=== PATIENT | male | born 1960 | race American Indian/Alaskan Native ===

== ENCOUNTER 2016-07-02 00:05 | Emergency (ER) | payer MEDICARE ==
[2016-07-02 01:11] LABS: Basophils % (Auto) 1.4 % (0.0-1.8); Eosinophils % (Auto) 5.7 % (0.0-4.3); Hematocrit 43.1 % (35.5-45.6); Hemoglobin 14.3 gm/dl (11.8-15.2); Mean Corpuscular HGB Conc 33 % (32-34); Mean Corpuscular Hemoglobin 30 pg (28-32); Mean Corpuscular Volume 89 fl (84-94); Platelet Count 334 K/mm3 (140-440); Red Blood Count 4.84 M/mm3 (3.65-5.03); Red Cell Distribution Width 13.4 % (13.2-15.2); White Blood Count 8.9 K/mm3 (4.5-11.0)
[2016-07-02 01:24] LABS: Blood Urea Nitrogen 8 mg/dL (9-20); Calcium 9.1 mg/dL (8.4-10.2); Carbon Dioxide 25 mmol/L (22-30); Chloride 98.2 mmol/L (98-107); Glucose 340 mg/dL (75-100); Potassium 4.1 mmol/L (3.6-5.0); Sodium 136 mmol/L (137-145)
[2016-07-02 01:44] LABS: Anion Gap 17 mmol/L
[2016-07-02 08:37] LABS: Urine Drugs of Abuse Note Disclamer
[2016-07-02 09:00] LABS: Bilirubin,Urine NEG (Negative); Blood,Urine SM (Negative); Ketones,Urine TR mg/dL (Negative); Leukocyte Esterase,Urine SM (Negative); Mucus,Urine FEW /HPF; Nitrite,Urine NEG (Negative); Protein,Urine <15 mg/dL mg/dL (Negative); Urobilinogen,Urine < 2.0 mg/dL (<2.0)
--- NOTE | 2016-07-02 22:01 | Emergency Department Report ---
ED Medical Clearance HPI - General Chief complaint: Medical Clearance Stated complaint: DETOX Time Seen by Provider: 07/02/16 22:00 Source: patient, RN notes reviewed Mode of arrival: Ambulatory Limitations: No Limitations - History of Present Illness Initial comments: This is a 55-year-old male, previously unknown to me. Patient presents to the ER requesting detox from cocaine and alcohol. He last ingested 4 days ago. He is not homicidal. He is not suicidal. He does not have access to guns or firearms. He does not have any hallucinations. He denies headache, neck pain, chest pain, abdominal pain, shortness of breath. He denies testicular pain, but admits to chronic burning with urination. No recent sexual partners in the past few months. Apparently, he went to an outpatient detox facility, and was instructed to come to the ER. MD Complaint: medical clearance request -: Gradual Place: home Alledged Intoxication: No Traumatic Symptoms: denies traumatic injury Associated Symptoms: denies: chest pain, shortness of breath, palpitations, diaphoresis, denies other symptoms, confusion, cough, fever/chills, headaches, anorexia, malaise, nausea/vomiting, rash, seizure, syncope, weakness Home medications: Home Medications Medication Instructions Recorded Confirmed Last Taken HYDROcodone/APAP 5-325 [[place] 1 each PO Q6HR PRN 07/02/16 07/02/16 Unknown 5/325] Lisinopril [Zestril TAB] 10 mg PO QDAY 07/02/16 07/02/16 Unknown Sennosides [Senna] 8.6 mg PO DAILY PRN 07/02/16 07/02/16 Unknown metFORMIN [Glucophage] 1,000 mg PO BID 07/02/16 07/02/16 Unknown Previous Rx's Medication Instructions Recorded Last Taken Type Nitrofurantoin [place]/M-Cryst 100 mg PO Q12HR #14 capsule 07/02/16 Unknown Rx [Macrobid CAP] Allergies/Adverse reactions: Allergies Allergy/AdvReac Type Severity Reaction Status Date / Time tomato Allergy Anaphylaxis Verified 07/02/16 00:45 ED Review of Systems ROS: Stated complaint: DETOX Other details as noted in HPI Constitutional: denies: malaise Eyes: denies: vision change ENT: denies: epistaxis Respiratory: denies: cough Cardiovascular: denies: chest pain Gastrointestinal: denies: abdominal pain Genitourinary: as per HPI. denies: testicular pain Musculoskeletal: as per HPI Skin: as per HPI. denies: lesions Neurological: as per HPI Psychiatric: denies: homicidal thoughts, suicidal thoughts ED Past Medical Hx - Past Medical History Previous Medical History?: Yes Hx Hypertension: Yes Hx Diabetes: Yes Hx Arthritis: Yes - Surgical History Past Surgical History?: No - Social History Smoking Status: Current Every Day Smoker Substance Use Type: None - Medications Home Medications: Home Medications Medication Instructions Recorded Confirmed Last Taken Type HYDROcodone/APAP 5-325 [[place] 1 each PO Q6HR PRN 07/02/16 07/02/16 Unknown History 5/325] Lisinopril [Zestril TAB] 10 mg PO QDAY 07/02/16 07/02/16 Unknown History Nitrofurantoin [place]/M-Cryst 100 mg PO Q12HR #14 capsule 07/02/16 Unknown Rx [Macrobid CAP] Sennosides [Senna] 8.6 mg PO DAILY PRN 07/02/16 07/02/16 Unknown History metFORMIN [Glucophage] 1,000 mg PO BID 07/02/16 07/02/16 Unknown History ED Physical Exam - General Limitations: No Limitations General appearance: alert, in no apparent distress - Head Head exam: Present: atraumatic, normocephalic - Eye Eye exam: Present: normal appearance, EOMI. Absent: nystagmus - ENT ENT exam: Present: normal exam, normal orophraynx, mucous membranes moist - Neck Neck exam: Present: normal inspection, full ROM. Absent: tenderness, meningismus - Respiratory Respiratory exam: Present: normal lung sounds bilaterally. Absent: respiratory distress, wheezes, rales, rhonchi, stridor, chest wall tenderness - Cardiovascular Cardiovascular Exam: Present: regular rate, normal rhythm, normal heart sounds. Absent: bradycardia, tachycardia, irregular rhythm, systolic murmur, diastolic murmur, rubs, gallop - GI/Abdominal GI/Abdominal exam: Present: soft, normal bowel sounds. Absent: distended, tenderness, guarding, rebound, rigid, pulsatile mass - Rectal Rectal exam: Present: deferred - Extremities Exam Extremities exam: Present: normal inspection, full ROM, normal capillary refill. Absent: tenderness, pedal edema, joint swelling, calf tenderness - Back Exam Back exam: Present: normal inspection, full ROM. Absent: tenderness, CVA tenderness (R), CVA tenderness (L), muscle spasm, paraspinal tenderness, vertebral tenderness - Neurological Exam Neurological exam: Present: alert, oriented X3, normal gait, other (Extraocular movements intact. Tongue midline. No facial droop. Facial sensation intact to light touch in the V1, V2, V3 distribution bilaterally. 5 and 5 strength in 4 extremities.. Sensation is intact to light touch in 4 extremities.). Absent : motor sensory deficit - Psychiatric Psychiatric exam: Present: normal affect, normal mood. Absent: homicidal ideation, suicidal ideation - Skin Skin exam: Present: warm, dry, intact, normal color. Absent: rash ED Course Vital Signs 07/02/16 07/02/16 07/02/16 00:46 20:22 23:05 Temperature 97.7 F 98.1 F Pulse Rate 73 78 Respiratory 18 18 18 Rate Blood Pressure 142/89 Blood Pressure 136/89 [Left] O2 Sat by Pulse 98 97 Oximetry - Reevaluation(s) Reevaluation #1: 07/02/16 22:56 Differential diagnosis: Alcohol dependency, cocaine dependency, medical clearance, urinary tract infection Assessment and plan: 55-year-old male with polysubstance dependency here for medical clearance. He is afebrile with reassuring vital signs, and has a normal neurologic exam. He has a GCS of 15, with an NIH score of 0, walks with a steady gait, and is clinically sober. He is not clinically withdrawing at this time. He does not have any indication for 1013 at this time. May have a mild urinary tract infection. At this point in time, I see no immediate medical contraindication to detox therapy. The patient is seen and evaluated by the respiratory manager, Elizabeth, who was supply the patient with detox resources. ED Medical Decision Making - Lab Data Result diagrams: 07/02/16 00:56 07/02/16 00:56 Vital Signs 07/02/16 07/02/16 00:46 20:22 Temperature 97.7 F Pulse Rate 73 Respiratory 18 18 Rate Blood Pressure 142/89 O2 Sat by Pulse 98 Oximetry Lab Results 07/02/16 07/02/16 07/02/16 Range/Units 00:56 00:56 00:56 WBC 8.9 (4.5-11.0) K/mm3 RBC 4.84 (3.65-5.03) M/mm3 Hgb 14.3 (11.8-15.2) gm/dl Hct 43.1 (35.5-45.6) % MCV 89 (84-94) fl MCH 30 (28-32) pg MCHC 33 (32-34) % RDW 13.4 (13.2-15.2) % Plt Count 334 (140-440) K/mm3 Lymph % (Auto) 35.8 H (13.4-35.0) % [place] % (Auto) 8.3 H (0.0-7.3) % Eos % (Auto) 5.7 H (0.0-4.3) % Baso % (Auto) 1.4 (0.0-1.8) % Lymph # 3.2 (1.2-5.4) K/mm3 [place] # 0.7 (0.0-0.8) K/mm3 Eos # 0.5 H (0.0-0.4) K/mm3 Baso # 0.1 (0.0-0.1) K/mm3 Seg Neutrophils % 48.8 (40.0-70.0) % Seg Neutrophils # 4.3 (1.8-7.7) K/mm3 Sodium 136 L (137-145) mmol/L Potassium 4.1 (3.6-5.0) mmol/L Chloride 98.2 (98-107) mmol/L Carbon Dioxide 25 (22-30) mmol/L Anion Gap 17 mmol/L BUN 8 L (9-20) mg/dL Creatinine 0.8 (0.8-1.5) mg/dL Estimated GFR > 60 ml/min BUN/Creatinine Ratio 10.00 % Glucose 340 H (75-100) mg/dL Calcium 9.1 (8.4-10.2) mg/dL Urine Color (Yellow) Urine Turbidity (Clear) Urine pH (5.0-7.0) Ur Specific [place] (1.003-1.030) Urine Protein (Negative) mg/dL Urine Glucose (UA) (Negative) mg/dL Urine Ketones (Negative) mg/dL Urine Blood (Negative) Urine Nitrite (Negative) Urine Bilirubin (Negative) Urine Urobilinogen (<2.0) mg/dL Ur Leukocyte Esterase (Negative) Urine WBC (Auto) (0.0-6.0) /HPF Urine RBC (Auto) (0.0-6.0) /HPF U Epithel Cells (Auto) (0-13.0) /HPF Urine Mucus /HPF Urine Opiates Screen Urine Methadone Screen Ur Barbiturates Screen Ur Phencyclidine Scrn Ur Amphetamines Screen U Benzodiazepines Scrn Urine Cocaine Screen U Marijuana (THC) Screen Drugs of Abuse Note Plasma/Serum Alcohol < 0.01 (0-0.07) gm% 07/02/16 07/02/16 Range/Units 08:29 08:29 WBC (4.5-11.0) K/mm3 RBC (3.65-5.03) M/mm3 Hgb (11.8-15.2) gm/dl Hct (35.5-45.6) % MCV (84-94) fl MCH (28-32) pg MCHC (32-34) % RDW (13.2-15.2) % Plt Count (140-440) K/mm3 Lymph % (Auto) (13.4-35.0) % [place] % (Auto) (0.0-7.3) % Eos % (Auto) (0.0-4.3) % Baso % (Auto) (0.0-1.8) % Lymph # (1.2-5.4) K/mm3 [place] # (0.0-0.8) K/mm3 Eos # (0.0-0.4) K/mm3 Baso # (0.0-0.1) K/mm3 Seg Neutrophils % (40.0-70.0) % Seg Neutrophils # (1.8-7.7) K/mm3 Sodium (137-145) mmol/L Potassium (3.6-5.0) mmol/L Chloride (98-107) mmol/L Carbon Dioxide (22-30) mmol/L Anion Gap mmol/L BUN (9-20) mg/dL Creatinine (0.8-1.5) mg/dL Estimated GFR ml/min BUN/Creatinine Ratio % Glucose (75-100) mg/dL Calcium (8.4-10.2) mg/dL Urine Color Yellow (Yellow) Urine Turbidity Clear (Clear) Urine pH 5.0 (5.0-7.0) Ur Specific [place] 1.037 H (1.003-1.030) Urine Protein <15 mg/dl (Negative) mg/dL Urine Glucose (UA) >=500 (Negative) mg/dL Urine Ketones Tr (Negative) mg/dL Urine Blood Sm (Negative) Urine Nitrite Neg (Negative) Urine Bilirubin Neg (Negative) Urine Urobilinogen < 2.0 (<2.0) mg/dL Ur Leukocyte Esterase Sm (Negative) Urine WBC (Auto) 28.0 H (0.0-6.0) /HPF Urine RBC (Auto) 5.0 (0.0-6.0) /HPF U Epithel Cells (Auto) 4.0 (0-13.0) /HPF Urine Mucus Few /HPF Urine Opiates Screen Presumptive negative Urine Methadone Screen Presumptive negative Ur Barbiturates Screen Presumptive negative Ur Phencyclidine Scrn Presumptive negative Ur Amphetamines Screen Presumptive negative U Benzodiazepines Scrn Presumptive negative Urine Cocaine Screen Presumptive positive U Marijuana (THC) Screen Presumptive negative Drugs of Abuse Note Disclamer Plasma/Serum Alcohol (0-0.07) gm% ED Disposition Clinical Impression: Alcohol dependence Disposition: DISCHARGED TO HOME OR SELFCARE Is pt being admited?: No Does the pt Need Aspirin: No Condition: Stable Instructions: Polysubstance Abuse (ED) Additional Instructions: Discontinue consumption of alcohol and cocaine. They are bad for your health. The antibiotics as directed. Follow up with a primary care doctor within the next [address] Flores is a local primary care doctor. At this point in time, I see no immediate medical contraindication to detox therapy. You may present this to the detox center. Return to the ER right away with headache, neck pain, chest pain, abdominal pain, shortness of breath, nausea, vomiting, diarrhea. Prescriptions: Nitrofurantoin [place]/M-Cryst [Macrobid CAP] 100 mg PO Q12HR #14 capsule Referrals: PRIMARY CAREMD [Primary Care Provider] - 3-5 Days SONA FLORES MD [Staff Physician] - 3-5 Days
[2016-07-02 23:06] VITALS: BP 136/89
== END 2016-07-03 | disposition home or self-care (01) ==
LOC: ED 00:05
DX: F10.20 Alcohol dependence, uncomplicated (principal); F17.200 Nicotine dependence, unspecified, uncomplicated; I10 Essential (primary) hypertension; E11.9 Type 2 diabetes mellitus without complications; M19.90 Unspecified osteoarthritis, unspecified site; Z91.018 Allergy to other foods
CPT/HCPCS: 36415; 80048; 81001; 85025; 99284; G0479; G0480; 80307; 80320

== ENCOUNTER 2016-07-19 09:38 | Emergency (ER) | payer MEDICARE ==
--- NOTE | 2016-07-19 10:32 | Emergency Department Report ---
Stated Complaint: HBG Time Seen by Provider: 07/19/16 10:27 - HPI History of Present Illness: Patient reports elevated blood sugar reported to him by the medical staff at [facility]. He c/o headache for four days - ROS Review of Systems: all other systems are unremarkable except for documentation in HPI - Exam Physical Exam: Gen: well developed and nourished, NAD Neuro: A&O times 3, GCS 15, no focal neuro deficits noted MSE screening note: Focused history and physical exam performed. Due to findings the following was ordered: glycemic level and laboratory studies ordered ED Disposition for MSE Condition: Stable
[2016-07-19 11:00] LABS: Basophils % (Auto) 1.1 % (0.0-1.8); Eosinophils % (Auto) 4.5 % (0.0-4.3); Hematocrit 41.9 % (35.5-45.6); Hemoglobin 13.9 gm/dl (11.8-15.2); Mean Corpuscular HGB Conc 33 % (32-34); Mean Corpuscular Hemoglobin 30 pg (28-32); Mean Corpuscular Volume 89 fl (84-94); Platelet Count 298 K/mm3 (140-440); Red Cell Distribution Width 13.3 % (13.2-15.2); White Blood Count 11.3 K/mm3 (4.5-11.0)
[2016-07-19 11:17] LABS: Alanine Aminotransferase 28 units/L (7-56); Albumin 4.3 g/dL (3.9-5); Albumin/Globulin Ratio 1.3 %; Alkaline Phosphatase 215 units/L (35-129); Anion Gap 19 mmol/L; B-Hydroxybutyrate 1.7 mg/dL (0.2-2.8); Bilirubin,Total 0.3 mg/dL (0.1-1.2); Blood Urea Nitrogen 16 mg/dL (9-20); Calcium 9.6 mg/dL (8.4-10.2); Carbon Dioxide 24 mmol/L (22-30); Chloride 92.7 mmol/L (98-107); Glucose 499 mg/dL (75-100); Potassium 4.9 mmol/L (3.6-5.0); Sodium 131 mmol/L (137-145); Total Protein 7.6 g/dL (6.3-8.2)
[2016-07-19 12:25] LABS: Bilirubin,Urine NEG (Negative); Blood,Urine NEG (Negative); Ketones,Urine NEG (Negative); Leukocyte Esterase,Urine NEG (Negative); Nitrite,Urine NEG (Negative); Protein,Urine <15 mg/dL mg/dL (Negative); Urobilinogen,Urine < 2.0 mg/dL (<2.0)
[2016-07-19 12:29] LABS: Mucus,Urine FEW /HPF
[2016-07-19] MEDS ORDERED: NACL 0.9% 1000 ML 1,000 ML IV ONE (20:19)
[2016-07-19 22:44] VITALS: BP 132/88
--- NOTE | 2016-07-20 00:35 | Emergency Department Report ---
HPI - General Chief Complaint: Hyperglycemia Time Seen by Provider: 07/19/16 20:14 - HPI HPI: The patient is a 55-year-old male with a history of diabetes, who presents for evaluation of lightheadedness and elevated BS. The patient reports lightheadedness, on and off for the past 3 days, severe for the past one day, exacerbated with standing and exertion, and improved with resting and lying down. The patient denies fever, headache, neck pain, paresthesias, focal motor weakness, blurry vision, ear pain, tinnitus, chest pain, hemoptysis, dyspnea, abdominal pain, confusion or altered mental status, or recent URI or diarrhea. ED Past Medical Hx - Past Medical History Previous Medical History?: Yes Hx Hypertension: Yes Hx Diabetes: Yes Hx Arthritis: Yes Hx Psychiatric Treatment: Yes (alcohol abuse, drug abuse) - Surgical History Past Surgical History?: No - Social History Smoking Status: Current Every Day Smoker Substance Use Type: Alcohol, Cocaine, Marijuana - Medications Home Medications: Home Medications Medication Instructions Recorded Confirmed Last Taken Type Lisinopril [Zestril TAB] 10 mg PO QDAY 07/02/16 07/19/16 Unknown History Sennosides [Senna] 8.6 mg PO DAILY PRN 07/02/16 07/19/16 Unknown History metFORMIN [Glucophage] 1,000 mg PO BID 07/02/16 07/19/16 Unknown History ED Review of Systems ROS: Stated complaint: HBG Other details as noted in HPI Constitutional: denies: fever; reports lightheadedness ENT: denies: throat or neck pain Respiratory: denies: cough, shortness of breath Cardiovascular: denies: chest pain Endocrine: denies unexplained weight loss or gain Gastrointestinal: denies: abdominal pain, nausea Genitourinary: denies: dysuria Musculoskeletal: denies: leg swelling Skin: denies: rash Neurological: denies: headache Hematological/Lymphatic: denies: easy bleeding or easy bruising Psych: denies sadness or hopelessness Physical Exam - Physical Exam Vital Signs: Vital Signs 07/19/16 07/19/16 07/19/16 10:33 16:22 20:00 Temperature 97.5 F L 98.5 F 97.7 F Pulse Rate 101 H 95 H 95 H Respiratory 18 20 20 Rate Blood Pressure 128/80 149/104 Blood Pressure 130/93 [Left] O2 Sat by Pulse 95 98 97 Oximetry 07/19/16 07/19/16 21:06 22:43 Temperature Pulse Rate 85 Respiratory 20 20 Rate Blood Pressure Blood Pressure 132/88 [Left] O2 Sat by Pulse 98 97 Oximetry Physical Exam: General: well-nourished, well-developed, no acute distress Head: Normocephalic, atraumatic Eyes: normal sclera, No nystagmus, EOMI, PERRL ENT: Mucous membranes are pale and dry Neck: No neck stiffness, no cervical adenopathy Respiratory: Breath sounds equal bilaterally, no wheezing, rales, or rhonchi Cardio: S1 and S2 present, no murmurs, rubs, gallops, capillary refill is delayed Abdomen: Normoactive bowel sounds, soft abdomen, no rigidity, no guarding or rebound tenderness Musc: No pitting edema Skin: No rash Neuro: Alert oriented 3, no facial drooping, normal speech, no neuro deficits on exam Psych: Normal affect ED Course Vital Signs 07/19/16 07/19/16 07/19/16 10:33 16:22 20:00 Temperature 97.5 F L 98.5 F 97.7 F Pulse Rate 101 H 95 H 95 H Respiratory 18 20 20 Rate Blood Pressure 128/80 149/104 Blood Pressure 130/93 [Left] O2 Sat by Pulse 95 98 97 Oximetry 07/19/16 07/19/16 21:06 22:43 Temperature Pulse Rate 85 Respiratory 20 20 Rate Blood Pressure Blood Pressure 132/88 [Left] O2 Sat by Pulse 98 97 Oximetry ED Medical Decision Making - Lab Data Result diagrams: 07/19/16 10:37 07/19/16 10:37 - Medical Decision Making The patient was seen and examined by myself. The patient is placed on a color television console monitor and continuous pulse ox. On initial evaluation, the patient was found to be in no distress. Evaluation orders were placed. Lab results reveal hyperglycemia, Glu 499, and labs were negative for criteria meeting DKA. IV access is established and the patient is given 1 L normal saline fluid bolus and IV insulin for treatment of hyperglycemia and dehydration. The patient was reevaluated and reported that their symptoms were markedly improved. The patient's blood sugar has decreased as well. The patient is stable for discharge with outpatient follow-up. The patient is given follow-up and return instructions. The patient expressed understanding and agreed with the plan. The patient is discharged in stable condition. Critical care attestation.: If time is entered above; I have spent that time in minutes in the direct care of this critically ill patient, excluding procedure time. ED Disposition Clinical Impression: Acute hyperglycemia, Dehydration Disposition: DISCHARGED TO HOME OR SELFCARE Is pt being admited?: No Does the pt Need Aspirin: No Condition: Stable Instructions: Diabetes Mellitus Type 2 in Adults (ED) Referrals: PRIMARY CARE, [Primary Care Provider] - 3-5 Days Time of Disposition: 00:18
== END 2016-07-20 00:30 | disposition home or self-care (01) ==
LOC: ED 09:38
DX: E11.65 Type 2 diabetes mellitus with hyperglycemia (principal); E86.0 Dehydration; I10 Essential (primary) hypertension; F17.200 Nicotine dependence, unspecified, uncomplicated; F14.10 Cocaine abuse, uncomplicated; F12.10 Cannabis abuse, uncomplicated
CPT/HCPCS: 36415; 80053; 81001; 82010; 82962; 85025; 93005; 93010; 96361; 96374; 99284; J7030; J1815